=== PATIENT | male | born 1955 | race Two or more races ===

== ENCOUNTER 2024-09-30 05:55 | Emergency (ER) | payer BC, MEDICARE, SELFPAY ==
[2024-09-30] VITALS (14 sets, daily range): BP systolic 98–116; BP diastolic 57–74; PULSE 65–82; TEMP 36.4; O2SAT 99–100
[2024-09-30 06:06] LABS: Glucometer 142 mg/dL (74-106)
--- NOTE | 2024-09-30 06:24 | ECG_ITS ---
[facility] Test Date: 2024-09-30 Pat Name: GAUDENCIO MIRANDA Department: Room: - Gender: Male [employer]visor [employer]: : [id number] Requested By: [id number] Order Number: [id number] Reading MD: TYE MAYA M.D. Measurements Intervals Douglas Rate: 71 P: -57 WV: 116 QRS: 81 QRSD: 96 T: 80 QT: 400 QTc: 423 Interpretive Statements Normal sinus rhythm 2210 Short WV interval 2440 Incomplete right bundle branch block 9150 abnormal ECG No previous ECG available for comparison Electronically Signed On 10-01-2024 6:57:07 EDT by TYE MAYA M.D.
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
[2024-09-30 06:58] LABS: Basophils Percent Auto 0.5 % (0.2-2.0); Eosinophils Absolute Auto 0.1 10^3/uL (0.0-0.7); Eosinophils Percent Auto 0.7 % (0.9-7.0); Hematocrit 39.5 % (42.0-54.0); Hemoglobin 13.4 g/dL (14.0-18.0); Immature Granulocytes Abs Auto 0.01 10^3/uL (0.00-0.03); Immature Granulocytes Pct Auto 0.1 % (0.0-0.5); Lymphocytes Absolute Auto 1.2 10^3/uL (1.2-3.8); Lymphocytes Percent Auto 14.5 % (20.5-60.0); Mean Corpuscular HGB Conc 33.9 g/dL (29.9-35.2); Mean Corpuscular Hemoglobin 30.2 pg (25.9-34.0); Mean Platelet Volume 10.2 fL (9.5-13.5); Monocytes Absolute Auto 0.7 10^3/uL (0.3-0.8); Monocytes Percent Auto 8.2 % (1.7-12.0); Neutrophils Absolute Auto 6.3 10^3/uL (1.4-6.5); Platelet Count 204 10^3/uL (150-450); Red Blood Count 4.44 10^6/uL (4.70-6.10); Red Cell Distribution Width 13.2 % (11.0-15.0); White Blood Count 8.3 10^3/uL (4.0-11.0)
[2024-09-30] MEDS: 0.9 % SODIUM CHLORIDE 1,000 ML 999 ML IV (07:09)
[2024-09-30 07:20] LABS: Alanine Aminotransferase 12 U/L (16-63); Albumin Globulin Ratio 0.9; Albumin Level 3.4 g/dL (3.4-5.0); Alkaline Phosphatase 68 U/L (46-116); Anion Gap 13.3; Aspartate Amino Transferase 19 U/L (15-37); BUN Creatinine Ratio 22.9; Bilirubin Total 0.3 mg/dL (0.2-1.0); Calcium 8.8 mg/dL (8.5-10.1); Carbon Dioxide 25.6 mmol/L (21.0-32.0); Chloride 97 mmol/L (98-107); Estimated GFR (African America >60 (>=60 mL/min/1.73m^2); Estimated GFR (Non-African Ame >60 (>=60 mL/min/1.73m^2); Glucose 103 mg/dL (74-106); Potassium 3.9 mmol/L (3.5-5.1); Sodium 132 mmol/L (136-145); Total Protein 7.4 g/dL (6.4-8.2)
[2024-09-30 07:24] LABS: Salicylate 5.7 mg/dL (<=19.9)
[2024-09-30 07:26] LABS: Thyroid Stimulating Hormone 0.714 uIU/mL (0.358-3.740); Troponin I High Sensitivity 7.7 pg/mL (4.0-76.1)
[2024-09-30 07:27] LABS: Acetaminophen <2.0 ug/mL (10.0-30.0); Ethanol <3 mg/dL
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
== END 2024-09-30 08:44 | disposition short-term general hospital (02) ==
PROVIDERS: Emergency Provider Internal Medicine
DX: S06.5XAA Traumatic subdural hemorrhage with loss of consciousness status unknown, initial encounter (principal); V49.9XXA Car occupant (driver) (passenger) injured in unspecified traffic accident, initial encounter; R41.82 Altered mental status, unspecified
CPT/HCPCS: 36415; 70450; 72125; 80053; 80179; 80307; 80320; 80329; 81001; 82948; 84443; 84484; 85025; 93005; 96360; 99285